=== PATIENT | male | born 1980 ===

== ENCOUNTER 2023-02-18 21:15 | Emergency (ER) | payer OTHER ==
[~2023-02-18] VITALS: Ht 177.8 cm; Wt 124.7 kg
[~2023-02-18 21:15] MED LIST: Prednisone20 MG PO
[2023-02-18 21:53] VITALS: BP 157/97
[2023-02-18] MEDS ORDERED: Prednisone20 MG PO (23:07)
== END 2023-02-18 23:14 | disposition home or self-care (01) ==
LOC: ER 21:15
DX: L23.7 Allergic contact dermatitis due to plants, except food (principal)
CPT/HCPCS: 99283; J7512